=== PATIENT | female | born 1980 | race Caucasian/White ===

== ENCOUNTER → 2017-04-01 | Outpatient (CLI) | payer BC ==
[~2017-04-01] MED LIST: BCPILLS PO; MTR600X PO; PREN1TAB29; ZLF/50 PO
--- NOTE | 2017-04-01 09:46 | DIAGNOSTIC IMAGING REPORT ---
ABDOMINAL ULTRASOUND, RIGHT UPPER QUADRANT HISTORY: Intermittent generalized abdominal pain.. COMPARISON: Abdomen and pelvis CT 12/01/2013. FINDINGS: Pancreas: The pancreas demonstrates a normal echotexture. Liver: Unremarkable. Gallbladder: No gallbladder wall thickening. No gallstones. A few small nonmobile nodules at within the gallbladder wall consistent with polyps. Largest measures 2 mm. CBD: 3 mm. Right kidney: No hydronephrosis. IMPRESSION: 1. A few subcentimeter gallbladder polyps. No gallstones. 2. Normal caliber common bile duct. Electronically signed by: Wan Morrell M.D. 04/01/2017 9:44 AM Dictated Date/Time: 04/01/2017 9:40 AM
== END | disposition home or self-care (01) ==
LOC: C.ULTR 08:41
PROVIDERS: ATTEND Nurse Practitioner Family
DX: R11.0 Nausea (principal); R10.9 Unspecified abdominal pain; K82.4 Cholesterolosis of gallbladder

== ENCOUNTER → 2017-04-29 | Outpatient (CLI) | payer BC ==
[~2017-04-29] MED LIST changes: +SINCALIDE IV SCH; +SODIUM CHLORIDE 0.9% IV SCH
--- NOTE | 2017-04-29 10:00 | DIAGNOSTIC IMAGING REPORT ---
NUCLEAR MEDICINE HEPATOBILIARY SCAN WITH EJECTION FRACTION HISTORY: R11.0 [id number] generalized Abdominal [id number] COMPARISON: Abdominal ultrasound 04/01/2017. TECHNIQUE: Immediately following the intravenous administration of 5.5 mCi Tc-99m Choletec, dynamic anterior abdominal imaging pre/post 1 mcg of Kinevac was performed. FINDINGS: Uniform hepatic tracer accumulation is shown. Prompt intrahepatic biliary excretion is seen. The gallbladder, common bile duct, and small bowel are all visualized by 30 minutes. This appearance represents the normal sequence of biliary excretion. The gall bladder ejection fraction following administration of Kinevac was 95% (normal >35%). IMPRESSION: 1. No evidence for cystic duct obstruction. 2. Gallbladder ejection fraction calculated to be 95 %. Electronically signed by: Wan Morrell M.D. 04/29/2017 9:59 AM Dictated Date/Time: 04/29/2017 9:57 AM
== END | disposition home or self-care (01) ==
LOC: C.NUCL 07:33
PROVIDERS: ATTEND Surgery
DX: R11.0 Nausea (principal); R10.9 Unspecified abdominal pain

== ENCOUNTER 2018-03-28 00:27 | Inpatient (IN) | payer OTHER ==
[~2018-03-28] VITALS: Ht 160 cm; Wt 64.1 kg
[~2018-03-28 00:27] MED LIST changes: -SINCALIDE IV SCH; -SODIUM CHLORIDE 0.9% IV SCH
[2018-03-28] MEDS ORDERED: LACTATED RINGER'S 1000ML 1,000 ML IV PRN (01:09)
[2018-03-28] MEDS ORDERED: PENICILLIN G POTASSIUM IV 3 MU in DEXTROSE 5% 100ML 100 ML IV PRN (01:15)
[2018-03-28] MEDS ORDERED: PENICILLIN G POTASSIUM IV 6 MU in DEXTROSE 5% 250ML 250 ML IV ONE (01:30)
[2018-03-28 01:48] VITALS: Ht 160 cm; Wt 64.1 kg
[2018-03-28 01:48] LABS: HEMATOCRIT 33.6 % (37-47); HEMOGLOBIN 11.6 g/dL (12.0-16.0); MEAN CORPUSCULAR HEMOGLOBIN 30.1 pg (25-34); MEAN CORPUSCULAR HGB CONC 34.5 g/dl (32-36); PLATELET COUNT 247 K/uL (130-400); RED CELL DISTRIBUTION WIDTH SD 44.1 fL (36.4-46.3); WHITE BLOOD COUNT 6.56 K/uL (4.8-10.8)
[2018-03-28] MEDS ORDERED: BUPIVACAINE 0.25% 30 ML VIAL ONE (01:52)
[2018-03-28] MEDS ORDERED: FENTANYL CITRATE INJ 50 MCG/1 ML 2 ML VIAL ONE (01:52)
[2018-03-28] MEDS ORDERED: EpHEDrine SULFATE INJ 50 MG/ML AMP ONE (01:52)
[2018-03-28] MEDS ORDERED: FENTANYL 2MCG/ML ROPIV 1.25MG/ML 100ML BAG ONE (01:53)
[2018-03-28] MEDS: LACTATED RINGER'S 1000ML 1,000 ML IV SCH ×2 (03:01→06:33)
[2018-03-28] MEDS ORDERED: LACTATED RINGER'S 1000ML 500 ML IV PRN ×2 (03:01→06:18)
[2018-03-28] MEDS ORDERED: NALOXONE HCL INJ 1 MG in SODIUM CHLORIDE 0.9% 1000ML 1,000 ML IV PRN (03:01)
[2018-03-28] MEDS ORDERED: FENTANYL 2MCG/ML ROPIV 1.25MG/ML 100ML BAG EPI PRN (03:15)
[2018-03-28] MEDS ORDERED: NALOXONE HCL INJ 0.4 MG/1 ML VIAL/CARP IV PRN (03:15)
[2018-03-28] MEDS ORDERED: NALBUPHINE HCL INJ 10 MG/ML 1ML AMP IV PRN (03:15)
[2018-03-28] MEDS ORDERED: ONDANSETRON INJ 2 MG/ML 2 ML VIAL IV PRN (03:15)
[2018-03-28] MEDS ORDERED: DiphenhydrAMINE HCL 50 MG/ML VIAL IV PRN (03:15)
[2018-03-28] MEDS ORDERED: EpHEDrine SULFATE INJ 50 MG/ML AMP IV PRN (03:15)
[2018-03-28] MEDS ORDERED: FERR1TAB23 (03:25)
[2018-03-28] MEDS ORDERED: OXYTOCIN 30 UNITS/500ML NSS IV PRN ×2 (06:30→09:15)
[2018-03-28] MEDS ORDERED: ACETAMINOPHEN 325 MG TAB PO PRN (09:15)
[2018-03-28] MEDS ORDERED: SUPERCREAM 0.870 % 15GM JAR EXT PRN (09:15)
[2018-03-28] MEDS ORDERED: HYDROCORTISONE ACETATE 25 MG SUPP PR PRN (09:15)
[2018-03-28] MEDS ORDERED: LANOLIN OINT EXT PRN (09:15)
[2018-03-28] MEDS ORDERED: BENZOCAINE 20% AER SPR 82.5 GM CAN EXT PRN (09:15)
--- NOTE | 2018-03-28 09:33 | Vaginal Delivery Summary ---
Vaginal Delivery Summary Delivery Note live male over intact perineum ODALYS with nuchal cord x1 reduced at delivery. Apgars 8/9 weight pending. Delayed cord clamping followed by cord blood and spontaneous delivery of intact placenta. Small 1st degree tear repaired with 3/0 Vicryl suture. EBL 250 ml. Final sponge, needle and instrument count are correct. Mom and baby stable.
--- NOTE | 2018-03-28 11:14 | Anesthesia Procedure Note ---
Anesthesia Epidural Removal Nt Date & Time Mar 28, 2018 at 11:14 Vital Signs Pain Intensity: 0.0 Notes Mental Status: alert / awake / arousable, participated in evaluation Nausea / Vomiting: adequately controlled Pain: adequately controlled Airway Patency, RR, SpO2: stable & adequate BP & HR: stable & adequate Hydration State: stable & adequate Neuraxial Anesthesia: was administered Anesthetic Complications: no major complications apparent, pt satisfied with anesthetic care Epidural: removed without complications, with tip intact
--- NOTE | 2018-03-28 11:47 | Vaginal Delivery Summary ---
Vaginal Delivery Summary Pt is a 30F, EGA of 38+3. of a viable male with Apgars of 8/9 , under epidural anesthesia from the dorsal lithotomy position. The infant's head was delivered in a controlled fashion. Meconium was not present. The mouth and nares were bulb suctioned prior to delivery of the body. Nuchal cord x1. The body delivered easily. The cord was clamped and cut and the infant was transferred to mom's chest for skin to skin. Cord was 3 vessel. The placenta was delivered spontaneously, intact without complication. The fundus was firm with minimal bleeding. Inspection of the vagina and cervix revealed 1 degree laceration. Laceration was repaired with [3.0 vicryl] with hemostasis and denominational of anatomy. The EBL was 250 mL. The attending was Dr. Washington with interior design assistant Dr. Fraga. Mother and child were doing well at the end of the delivery. Final sponge, instrument, and needle count found to be correct. Resident Tracking Resident Involvement: Resident Care Provided Care Provided: Adult Hospital Medicine
[2018-03-28] MEDS: IBUPROFEN 600 MG TAB PO PRN ×2 (15:03→23:11)
[2018-03-28 16:20] VITALS: BP 116/78; PULSE 86; TEMP 36.8; O2SAT 100
[2018-03-28] MEDS: DOCUSATE SODIUM 100 MG CAP PO SCH (19:49)
[2018-03-28 20:05] VITALS: BP 114/72; PULSE 90; TEMP 36.7; O2SAT 98
[2018-03-28 23:20] VITALS: BP 101/69; PULSE 90; TEMP 36.9; O2SAT 96
[2018-03-29 03:15] VITALS: BP 108/72; PULSE 84; TEMP 36.5; O2SAT 99
[2018-03-29] MEDS: DOCUSATE SODIUM 100 MG CAP PO SCH ×2 (08:06→20:07)
[2018-03-29] MEDS: SERTRALINE HCL 50 MG TAB PO SCH (08:07)
[2018-03-29 08:09] LABS: HEMATOCRIT 32.3 % (37-47); HEMOGLOBIN 10.6 g/dL (12.0-16.0)
[2018-03-29 08:15] VITALS: BP 107/74; PULSE 82; TEMP 36.7
[2018-03-29] MEDS: PRENATAL VITAMIN TAB PO SCH (08:47)
[2018-03-29] MEDS: FERROUS SULFATE 325 MG TAB PO SCH (08:47)
[2018-03-29] MEDS ORDERED: MEASLES, MUMPS & RUBELLA VIRUS VIAL SQ. ONE (09:00)
[2018-03-29] MEDS ORDERED: DIPHTHERIA/TETANUS/PERTUSSIS 0.5 ML SYR/VIAL IM. ONE (09:00)
[2018-03-29] MEDS ORDERED: VARICELLA VIRUS VACCINE LIVE 1 VIAL SQ. ONE (09:00)
--- NOTE | 2018-03-29 09:46 | OB/GYN Progress Note ---
[employer] MANAGER Progress Note Date of Service Mar 29, 2018. Subjective conversation w/ patient, physical exam Ambulation: ambulating normally Voiding: no voiding problems Passing Gas: Yes Diet Tolerance: Regular Diet Lochia: Small Feeding Type: Breast Feeding Objective Vital Signs Date Time Temp Pulse Resp B/P (MAP) Pulse Ox O2 Delivery O2 Flow Rate FiO2 03/29/18 08:15 36.7 82 20 107/74 (85) Room Air 03/29/18 08:15 Room Air 03/29/18 03:15 36.5 84 16 108/72 (84) 99 Room Air 03/28/18 23:20 36.9 90 16 101/69 (80) 96 Room Air 03/28/18 20:05 36.7 90 16 114/72 (86) 98 Room Air 03/28/18 20:05 Room Air 03/28/18 16:20 100 Room Air 03/28/18 16:20 36.8 86 20 116/78 (91) 100 Room Air Physical Exam General Appearance: WELL-APPEARING, NO APPARENT DISTRESS Abdomen: non tender, soft Fundus: Firm Extremities: non-tender, normal inspection, no pedal edema Laboratory Results Last 24 Hours Test 03/29/18 07:48 Hemoglobin 10.6 g/dL Hematocrit 32.3 % Assessment and Plan Post- Day Number: 1 Continue Routine Care: tent d/c in AM
[2018-03-29] MEDS ORDERED: FLUCONAZOLE 50 MG TAB PO ONE (11:30)
[2018-03-29 15:45] VITALS: BP 125/72; PULSE 58; TEMP 36.7
[2018-03-29] MEDS ORDERED: BISACODYL 5 MG TABEC PO SCH (20:00)
[2018-03-29] MEDS: IBUPROFEN 600 MG TAB PO PRN (20:18)
[2018-03-29 23:40] VITALS: BP 111/71; PULSE 87; TEMP 36.7
[2018-03-30] MEDS ORDERED: BISACODYL 10 MG SUPP PR PRN (07:00)
[2018-03-30 07:39] LABS: HEMATOCRIT 32.8 % (37-47); HEMOGLOBIN 10.7 g/dL (12.0-16.0); MEAN CELL VOLUME 88.4 fL (80-100); MEAN CORPUSCULAR HEMOGLOBIN 28.8 pg (25-34); MEAN CORPUSCULAR HGB CONC 32.6 g/dl (32-36); MEAN PLATELET VOLUME 9.8 fL (7.4-10.4); PLATELET COUNT 231 K/uL (130-400); RED CELL DISTRIBUTION WIDTH SD 45.5 fL (36.4-46.3); WHITE BLOOD COUNT 8.73 K/uL (4.8-10.8)
[2018-03-30] MEDS: PRENATAL VITAMIN TAB PO SCH (08:13)
[2018-03-30] MEDS: DOCUSATE SODIUM 100 MG CAP PO SCH (08:13)
[2018-03-30] MEDS: FERROUS SULFATE 325 MG TAB PO SCH (08:13)
[2018-03-30] MEDS: SERTRALINE HCL 50 MG TAB PO SCH (08:13)
[2018-03-30 08:15] VITALS: BP 103/69; PULSE 90; TEMP 36.4
--- NOTE | 2018-03-30 08:49 | OB/GYN Progress Note ---
CLAIMS CLERK Progress Note Date of Service Mar 30, 2018. Subjective conversation w/ patient, physical exam Ambulation: ambulating normally Voiding: no voiding problems Passing Gas: Yes Diet Tolerance: Regular Diet Lochia: Moderate Feeding Type: Breast Feeding Review of Systems Constitutional: No fever, No chills, No sweats, No weight loss, No weakness, No fatigue, No problem reported Respiratory: No cough, No sputum, No wheezing, No shortness of breath, No dyspnea on exertion, No dyspnea at rest, No hemoptysis, No problem reported Cardiac: No chest pain, No orthopnea, No PND, No edema, No claudication, No palpitations, No problem reported Breast: No see HPI, No breast lump, No change in shape, No nipple discharge, No breast pain, No problem reported Abdomen: No pain, No nausea, No vomiting, No diarrhea, No constipation, No GI bleeding, No problem reported Female : No see HPI, No dysuria, No urinary frequency, No hematuria, No incontinence, No abnormal vaginal bleeding, No vaginal discharge, No problem reported Objective Vital Signs Date Time Temp Pulse Resp B/P (MAP) Pulse Ox O2 Delivery O2 Flow Rate FiO2 03/29/18 23:40 Room Air 03/29/18 23:40 36.7 87 18 111/71 (84) Room Air 03/29/18 15:45 36.7 58 16 125/72 (89) Room Air 03/29/18 15:45 Room Air Physical Exam General Appearance: WELL-APPEARING, WD/WN, NO APPARENT DISTRESS Respiratory/Chest: chest non-tender, lungs clear, normal breath sounds Cardiovascular: regular rate, rhythm, no edema, no gallop Abdomen: normal bowel sounds, non tender, soft Fundus: Firm Extremities: normal range of motion, non-tender, normal inspection Laboratory Results Last 24 Hours Test 03/30/18 07:21 White Blood Count 8.73 K/uL Red Blood Count 3.71 M/uL Hemoglobin 10.7 g/dL Hematocrit 32.8 % Mean Corpuscular Volume 88.4 fL Mean Corpuscular Hemoglobin 28.8 pg Mean Corpuscular Hemoglobin Concent 32.6 g/dl RDW Standard Deviation 45.5 fL RDW Coefficient of Variation 14.0 % Platelet Count 231 K/uL Mean Platelet Volume 9.8 fL Assessment and Plan Post- Day Number: 2 Continue Routine Care: Pt doing well No complaints disch home with instructions
[2018-03-30] MEDS ORDERED: MTR600X PO (08:50)
--- NOTE | 2018-03-30 08:51 | Discharge Instructions ---
Discharge Instructions Date of Service Mar 30, 2018. Admission Reason for Admission: LABOR Discharge Discharge Diagnosis / Problem: postprtum Discharge Goals Goal(s): Routine recovery after delivery Activity Recommendations Activity Limitations: as noted below ACTIVITY RECOMMENDATIONS: * Gradual return to full activity over the next 2-3 weeks. * No lifting - nothing heavier than baby over the next 2-3 weeks. * Do not engage in vigorous exercise, sexual activity or sports until cleared by your physician. * Do not drive or operate any motorized equipment until cleared by your physician. * You may shower/bathe daily. BREAST CARE: If you are not breast feeding: * Wear a supportive bra 24 hours a day for one to two weeks. * Avoid stimulating your breasts and nipples as much as possible during the first few weeks after delivery. * When taking a shower, have the warm water hit your back, not breasts. * When your breasts feel full, apply ice packs. Usually three to four times a day helps ease the discomfort. * Take a mild pain medication (Tylenol/Motrin) when you are uncomfortable. If breast feeding: * Use breast milk to lubricate nipples. Lansinoh cream may be used for sore nipples. You do not need to remove cream prior to breast feeding. If using a different brand of cream, check the label for directions regarding removal of cream prior to nursing. * Wear a supportive bra. * If having problems with breasts or breast feeding, call a webmethods consultant or your health care provider. EPISIOTOMY CARE: After delivery, if you have an episiotomy (stitches), the following steps will ease discomfort and aid healing. * For the first 24 hours after delivery, place ice packs next to your episiotomy to help reduce swelling. * After the first 24 hour-period, sitz baths, either portable or in the tub, are suggested. A shower with a shower arm sprayed over the episiotomy may be comforting. * Duyen care should be done after each voiding and bowel movement. Squirt warm water from a plastic bottle over the perineum (region of the body between the anus and urinary opening) and pat dry. * Use Dermoplast to ease discomfort. Shake container. [place] directly over the episiotomy. * Place a Tucks on a clean sanitary pad next to your episiotomy. OVER THE COUNTER MEDICATION: * For discomfort or pain, you may use Acetaminophen (Tylenol), Ibuprofen (Advil ), or Naproxen (Aleve) following the package directions. * For constipation you may use Colace following the package directions. SPECIAL CARE INSTRUCTIONS: When you are discharged from the hospital, it is important for you to follow the instructions listed below: * During the first week at home, you should be able to care for yourself and your baby. In addition, the usual light household activities are encouraged. * Limit your activities to the way you feel. Do not try to clean the house or move furniture. Be sensible. * If you actively engage in sports and have done so up until the time of your delivery, you may resume these activities as soon as you feel able. This may take up to one month or even longer. Use good judgment. * Continue to take your vitamins for at least six weeks after the of your baby. * Your diet need not be limited unless you were on a special diet before your delivery. Breast-feeding mothers need around 2500 calories per day and at least 64-80 ounces of fluid per day (8 to 10 glasses). * You should eat foods from the four major food groups. Crash diets or fad diets are to be avoided. Eating lean meats, fresh fruits and vegetables, low-fat dairy products, high fiber foods and a regular exercise program, will help you get back to your pre- weight without putting your health at risk. * Constipation is sometimes a problem after delivery. Take a mild laxative as needed. If breast feeding, Milk of Magnesia is acceptable to use. You may use a suppository or Fleets enema if no episiotomy. * A daily shower or tub bath is suggested. Be sure to thoroughly and gently dry the perineum. * A bloody vaginal discharge will usually continue until around four weeks post . A small amount of bleeding may continue for as long as six weeks. Vaginal discharge changes from the bright red bleeding after delivery to pink then brownish and finally yellowish-pink before becoming white and disappearing. * Bleeding may increase with activity. Your first period may come in 4-8 weeks. If you are breast feeding, your period may be delayed even longer. * Pattison (sex) can begin whenever both you and your partner feel comfortable and do not have any form of genital infection. It is recommended that you wait until after your return appointment and discuss with your physician. If you have questions, please talk to your health care practitioner. A condom should be used to prevent infection and . * Foreplay, gentle intercourse and lubrication is very important the first several times to prevent pain. A water-based lubricant such as K-Y jelly or Astroglide may be used. * Tampons may be used six weeks after delivery. * Douching should be avoided for 6 weeks after delivery. * If you have RH negative blood and your baby is RH positive, you will receive RHOGAM by injection prior to discharge. The nurse will give you a card to keep with you that has the date and place that you received RHOGAM after delivery. * During your care, you had a Rubella screen done to check for the presence of rubella antibodies in your blood. If your test was negative, you will receive a Rubella vaccine prior to discharge. This vaccine may cause a fever, soreness at the injection site and flu-like symptoms. If these symptoms persist, notify your health care practitioner. is not advised for three months after a Rubella vaccine. There is a higher chance of having a baby with defects if conceived within three months of getting the vaccine. * If you were discharged 24 hours from delivery or before 48 hours: Visiting nurses will come to your home 48 hours after discharge to assess you and your baby. The visiting nurse will meet with you while you are in the hospital to arrange a time and get directions to your home. * Verbalizes understanding of car seat law as reviewed with patient nursing. * Car Seat hand-out given and reviewed with patient by nursing. * Shaken baby information reviewed with patient by nursing. Call you doctor if: * Heavy bleeding (saturating several pads an hour) or passing clots the size of your fist. * A fever >101 degrees F (38.3 degrees C) on two occasions four hours apart and/or chills. * Unusual pain in the pelvic or vaginal areas. * "Baby Blues" lasting longer than two weeks. If you have any questions or concerns, call your health care practitioner at . FOLLOW-UP VISIT: * Please call the office at to schedule a 6 week examination. It is important you keep this appointment. * It is important for you to make arrangements for either yearly or twice yearly check-ups thereafter. . Current Hospital Diet Patient's current hospital diet: Regular OB Diet Discharge Diet Recommended Diet: Regular Diet Pending Studies Studies pending at discharge: no Medical Emergencies . Who to Call and When: Medical Emergencies: If at any time you feel your situation is an emergency, please call 911 immediately. . Non-Emergent Contact Non-Emergency issues call your: Specialist . . "Provider Documentation" section prepared by Judson Rodriguez. .
[2018-03-30 14:22] VITALS: BP_DIAS 69; PULSE 90; TEMP 36.4
== END 2018-03-30 14:55 | disposition home or self-care (01) | DRG 775 ==
LOC: C.OPB 00:27 → C.LD 00:27 → C.OPB 01:10 → C.OBG 14:09 → EDSTATUS 04-08 00:26
PROVIDERS: ADMIT Obstetrics & Gynecology; ATTEND Obstetrics & Gynecology
PROC: 0HQ9XZZ Repair Perineum Skin, External Approach (ICD-10-PCS; principal; 2018-03-28)
PROC: 10E0XZZ Delivery of Products of Conception, External Approach (ICD-10-PCS; principal; 2018-03-28)
DX: O99.824 Streptococcus B carrier state complicating childbirth (principal); O69.81X0 Labor and delivery complicated by cord around neck, without compression, not applicable or unspecified; O70.0 First degree perineal laceration during delivery; Z3A.38 38 weeks gestation of pregnancy; Z37.0 Single live birth